=== PATIENT | female | born 1980 | race Caucasian/White ===

== ENCOUNTER 2019-06-17 14:20 | Emergency (ER) | payer OTHER, SELFPAY ==
[2019-06-17 14:24] VITALS: PULSE 113; RESP 16; O2SAT 99; BMI 34.5
[2019-06-17 15:03] VITALS: BP 128/83; PULSE 101; RESP 18; O2SAT 97
[2019-06-17 15:22] LABS: Add Manual Diff / Slide Review NO; Basophils Absolute Auto 100 /uL (0-100); Basophils Percent Auto 1.3 % (0-2); Eosinophils Absolute Auto 100 /uL (0-450); Eosinophils Percent Auto 1.2 % (2-4); Hematocrit 39.3 % (36-46); Hemoglobin 12.6 g/dL (12.0-16.0); Lymphocytes Absolute Auto 3400 /uL (1100-4500); Mean Corpuscular Hemoglobin 24.7 PG (26-34); Monocytes Absolute Auto 500 /uL (0-900); Monocytes Percent Auto 7.8 % (3-14); Neutrophils Absolute Auto 2900 /uL (1500-7000); Neutrophils Percent Auto 41.7 % (50-75); Platelet Count 274 X10^3/uL (150-400); Red Blood Cell Count 5.11 X10^6/uL (4.0-5.2); Red Cell Distribution Width 16.3 % (11.6-14.8)
[2019-06-17 15:39] LABS: Alanine Aminotransferase 15 IU/L (<35); Albumin 4.1 g/dL (3.5-5.0); Albumin Globulin Ratio 1.2 (1.0-2.8); Alkaline Phosphatase 58 U/L (38-126); Aspartate Aminotransferase 25 IU/L (14-36); BUN Creatinine Ratio 33.3 (6-22); Bilirubin Total 0.2 mg/dL (0.2-1.3); Blood Urea Nitrogen 21 mg/dL (7-17); Calcium 9.2 mg/dL (8.4-10.2); Carbon Dioxide 27 mmol/L (22-32); Chloride 105 mmol/L (98-107); Estimated Glomerular Filt Rate > 60.0 mL/min (>60); Globulin 3.5 g/dL (1.7-4.1); Glucose 91 mg/dL (70-100); HEMOLYSIS 16 (0-50); Potassium 4.3 mmol/L (3.4-5.1); Sodium 138 mmol/L (137-145); Total Protein 7.6 g/dL (6.3-8.2)
[2019-06-17] MEDS: ONDANSETRON 4 MG/2 ML INJ IV (15:46)
--- NOTE | 2019-06-17 15:47 | DI.US.S_ITS ---
PROCEDURE: US PELVIC COMPLETE INDICATIONS: HISTORY OF OVARIAN CYST,RUPTURE. EVAL FOR TORSION TECHNIQUE: Real-time scanning was performed of the pelvic organs, with image documentation. Additional endovaginal scanning was necessary due to incomplete visualization of the adnexal and endometrial structures by transabdominal scanning. COMPARISON: None. FINDINGS: Transabdominal scanning: Limited scanning through the kidneys shows no hydronephrosis. No pathologic free abdominal or pelvic fluid. Endovaginal scanning: Uterus: Uterus is normal in size at 3.8 x 5.5 x 6.6 cm. The endometrium measures 8.0 mm in combined thickness. Ovaries: The right ovary measures 3.7 x 4.0 x 5.0 cm and the left measures 2.8 x 1.5 x 3.0 cm. There is a rounded right ovarian cyst like structure containing low-level internal echoes measuring up to 2.6 x 3.5 x 3.3 cm. A limited duplex Doppler ultrasound shows no evidence of abnormal vascularity either within or along the periphery of this structure. IMPRESSION: The cystic structure at the right ovary measures up to 3.5 cm in maximal dimension, is rounded, and does not demonstrate abnormal internal or marginal vascularity. The low-level internal echoes indicate likelihood of either hemorrhagic right ovarian cyst or right paraovarian endometrioma. Followup in 6-8 weeks is recommended to assess for resolution. No suspicion for ovarian torsion is currently present. Dictated by: Chuck Luevano M.D. on 06/17/2019 at 17:02 Approved by: Chuck Luevano M.D. on 06/17/2019 at 17:06
[2019-06-17] MEDS: KETOROLAC 60 MG/2 ML VIAL 15 MG IV (15:54)
[2019-06-17 16:01] VITALS: BP 113/59; PULSE 69; RESP 18; O2SAT 98
--- NOTE | 2019-06-17 16:33 | ED_ITS ---
HPI - Female Genitourinary <IVAN Gutierres - Last Filed: 06/18/19 00:25> General Chief complaint: Urogenital-Female Stated complaint: Ovarian cyst rupture Time Seen by Provider: 06/17/19 15:06 Source: patient Mode of arrival: Ambulatory Limitations: no limitations History of Present Illness HPI Narrative: This is a 38 year female, nonsmoker, who presents to ED with severe right lower abdominal discomfort. Patient reports she has history of PCOS and takes metformin and which has been helping with her symptoms. She occasionally has ruptured ovarian cyst which causes severe pain. Patient denies vaginal bleeding at this time. Then, she also reports left low abdominal discomfort which started about 5 minutes ago. LMP was 10 days ago and not concerned for at this time. Patient reports she was dizzy earlier from the pain which resolved. Patient denies chest pain, breathing difficulty, lightheadedness at this time. Last ultrasound was done in November 2018. P atient denies urinary symptoms. Related Data Previous Rx's Medication Instructions Recorded amoxicillin-pot clavulanate 875 mg PO Q12H #14 tab 06/11/17 [Augmentin] ondansetron 4 mg PO BID-TID PRN #7 tab 06/17/19 tramadol 50 mg PO Q8H PRN #7 tab 06/17/19 Allergies Allergy/AdvReac Type Severity Reaction Status Date / Time iodine [IODINE] Allergy Unknown Verified 06/17/19 14:24 latex [LATEX] Allergy Unknown Verified 06/17/19 14:24 Review of Systems <IVAN Gutierres - Last Filed: 06/18/19 00:25> Review of Systems Narrative: General: Denies fever, chills, fatigue, malaise, sweats. HEENT: Denies sinus pain, ear pain, sore throat, difficulty swallowing, dizzin ess. Respiratory: Denies dyspnea, cough, wheezing, hemoptysis, sputum. Cardiovascular: Denies chest pain, palpitations, orthopnea, edema. Gastrointestinal: Denies nausea, vomiting, (+) right and left low abdominal pain, diarrhea, constipation, melena. : Denies dysuria, frequency, incontinence, hematuria, urinary retention. Musculoskeletal: Denies weakness, joint pain or bony pain. Skin: Denies rash, skin lesions, or other. Neurologic: Denies weakness, headache, numbness, change in speech, confusion, seizures, incoordination. Psychiatric: No concerning psychosocial issues. 12-point review of systems is negative except for those stated above. Patient History <IVAN Gutierres - Last Filed: 06/18/19 00:25> Medical History Appendicitis (Acute) Ovarian cyst (Acute) Smoking Status: Never smoker Substance Use Type: does not use Exam <IVAN Gutierres - Last Filed: 06/18/19 00:25> Narrative Exam Narrative: GEN: Alert, oriented x 3, well appearing and nourished, and in no acute distress. Head: Normal cephalic, atraumatic. No scalp or temporal tenderness, palpable mass or rash. EYES: Pupils are equal, round, and reactive to light and accommodation. Extraocular muscles are intact bilaterally. There is no subconjunctival hemorrhage, exudate and sclera non-icteric. ENT: Hearing grossly intact. Nose without bleeding, purulent discharge or de viation. Mucous membrane moist, no mucosal lesion. Throat without erythema, tonsillar hypertrophy or exudate. Uvula in midline, airway patent. Neck: Trachea in midline. No JVD, non-tender without lymphadenopathy. No masses or thyroid megaly. Supple, non-tender and no meningeal signs. CARDIAC: Normal regular rate and rhythm without murmurs, gallops, or rubs. No chest wall tenderness. No peripheral edema, cyanosis or pallor. Capillary refill is less than 2 seconds. RESPIRATORY: Lungs are clear to auscultate bilaterally. No cough, wheezes, rales, or rhonchi. No stridor, respiratory distress, increase work of breathing, or accessary muscle used. ABD: Abdomen soft and non-distended. Tender to palpate in bilateral low abdomen. No guarding or rebound tenderness to palpate. Bowel sounds are normal in all 4 quadrants. There is no palpable masses or organomegaly. EXT: Full painless ROM of all extremities with no loss of sensation, strength, effusion or edema. SKIN: Warm, dry, normal color for patient. No erythema, lesions or rash over visible areas. BACK: Nontender without deformity or crepitance. No flank tenderness. NEUROLOGICAL: Alert and oriented to place, time and person. Sensation and motor function intact bilaterally. No facial droops, dysphasia. PSYCHIATRIC: Good judgement and reason, without hallucinations, abnormal affect or abnormal behaviors during the examination. Initial Vital Signs Initial Vital Signs: Vital Signs Pulse Rate 113 H 06/17/19 14:24 Respiratory Rate 16 06/17/19 14:24 Pulse Oximetry 99 06/17/19 14:24 <Georgette Gibbs MD - Last Filed: 06/18/19 07:31> Initial Vital Signs Initial Vital Signs: Vital Signs Pulse Rate 113 H 06/17/19 14:24 Respiratory Rate 16 06/17/19 14:24 Pulse Oximetry 99 06/17/19 14:24 Scores <IVAN Gutierres - Last Filed: 06/18/19 00:25> GCS Juan coma scale eye opening: Spontaneous Ujan coma scale verbal response: Orientated Juan coma scale motor response: Obey commands Darragh coma scale total score: 15 Course <IVAN Gutierres - Last Filed: 06/18/19 00:25> Orders Ordered: Discontinued Medications Acetaminophen (Tylenol) 650 mg PO NOW ONE Stop: 06/17/19 17:24 Last Admin: 06/17/19 17:30 Dose: 650 mg Documented by: ROBBIN Ketorolac Tromethamine (Toradol) 15 mg IV NOW ONE Stop: 06/17/19 15:43 Last Admin: 06/17/19 15:54 Dose: 15 mg Documented by: ROBERTO Morphine Sulfate (Morphine) 2 mg IV NOW ONE Stop: 06/17/19 17:24 Last Admin: 06/17/19 17:30 Dose: 2 mg Documented by: ROBBIN Ondansetron HCl (Zofran) 4 mg IV NOW ONE Stop: 06/17/19 15:35 Last Admin: 06/17/19 15:46 Dose: 4 mg Documented by: ROBERTO Tramadol HCl (Ultram) 50 mg PO NOW ONE Stop: 06/17/19 17:24 Last Admin: 06/17/19 17:30 Dose: 50 mg Documented by: ROBBIN Vital Signs Vital signs: Vital Signs - 8 hr 06/17/19 17:55 06/17/19 18:31 Pulse Rate 81 68 Respiratory Rate 16 14 Blood Pressure 118/76 Blood Pressure [Right Arm] 122/87 Pulse Oximetry 97 100 <Georgette Gibbs MD - Last Filed: 06/18/19 07:31> Orders Ordered: Discontinued Medications Acetaminophen (Tylenol) 650 mg PO NOW ONE Stop: 06/17/19 17:24 Last Admin: 06/17/19 17:30 Dose: 650 mg Documented by: ROBBIN Ketorolac Tromethamine (Toradol) 15 mg IV NOW ONE Stop: 06/17/19 15:43 Last Admin: 06/17/19 15:54 Dose: 15 mg Documented by: ROBERTO Morphine Sulfate (Morphine) 2 mg IV NOW ONE Stop: 06/17/19 17:24 Last Admin: 06/17/19 17:30 Dose: 2 mg Documented by: ROBBIN Ondansetron HCl (Zofran) 4 mg IV NOW ONE Stop: 06/17/19 15:35 Last Admin: 06/17/19 15:46 Dose: 4 mg Documented by: ROBERTO Tramadol HCl (Ultram) 50 mg PO NOW ONE Stop: 06/17/19 17:24 Last Admin: 06/17/19 17:30 Dose: 50 mg Documented by: ROBBIN Vital Signs Vital signs: Vital Signs - 8 hr 06/17/19 17:55 06/17/19 18:31 Pulse Rate 81 68 Respiratory Rate 16 14 Blood Pressure 118/76 Blood Pressure [Right Arm] 122/87 Pulse Oximetry 97 100 [facility] - Female Genitourinary <IVAN Gutierres - Last Filed: 06/18/19 00:25> Differential Diagnosis Differential diagnosis: Likely urinary tract infection, ovarian cyst and ruptured ovarian cyst Medical Records Attestation: I reviewed the patient's medical records. Lab Data Attestation: I reviewed the patient's lab results. Result diagrams: 06/17/19 15:11 06/17/19 15:11 Labs: Lab Results 06/17/19 06/17/19 Range/Units 15:11 15:11 WBC 7.0 (4.5-11.0) X10^3/uL RBC 5.11 (4.0-5.2) X10^6/uL Hgb 12.6 (12.0-16.0) g/dL Hct 39.3 (36-46) % MCV 77.0 L (80-100) fL MCH 24.7 L (26-34) PG MCHC 32.0 (30-36) % RDW 16.3 H (11.6-14.8) % Plt Count 274 (150-400) X10^3/uL Neut % (Auto) 41.7 L (50-75) % Lymph % (Auto) 48.0 H (25-40) % [place] % (Auto) 7.8 (3-14) % Eos % (Auto) 1.2 L (2-4) % Baso % (Auto) 1.3 (0-2) % Neut # (Auto) 2900 (7605-6173) /uL Lymph # (Auto) 3400 (4127-1581) /uL [place] # (Auto) 500 (0-900) /uL Eos # (Auto) 100 (0-450) /uL Baso # (Auto) 100 (0-100) /uL Sodium 138 (137-145) mmol/L Potassium 4.3 (3.4-5.1) mmol/L Chloride 105 (98-107) mmol/L Carbon Dioxide 27 (22-32) mmol/L BUN 21 H (7-17) mg/dL Creatinine 0.63 (0.52-1.04) mg/dL Estimated GFR > 60.0 (>60) mL/min BUN/Creatinine Ratio 33.3 H (6-22) Glucose 91 (70-100) mg/dL Calcium 9.2 (8.4-10.2) mg/dL Total Bilirubin 0.2 (0.2-1.3) mg/dL AST 25 (14-36) IU/L ALT 15 (<35) IU/L Alkaline Phosphatase 58 (38-126) U/L Total Protein 7.6 (6.3-8.2) g/dL Albumin 4.1 (3.5-5.0) g/dL Globulin 3.5 (1.7-4.1) g/dL Albumin/Globulin Ratio 1.2 (1.0-2.8) Point of Care Testing Test Results Negative Urine Dip Bedside Urine Glucose Negative Bedside Urine Bilirubin - Negative Bedside Urine Ketone +/- 5 Urine Specific [place] 1.030 Bedside Urine Occult Blood - Negative Bedside Urine pH 6.0 Bedside Urine Protein +/- 15 Bedside Urine Nitrite - Negative Bedside Urine Leukocytes - Negative Esterase Imaging Data US - [employer] TECHNICIAN: Radiologist's Impression: [address] [address] Ultrasound Report Signed Patient: Vijaya Soliman [facility]#: [id number] : 1980Acct:[id number] Age/Sex: 38 / FDate of Service: 06/17/19 Loc: ED Accession Number: [id number] Procedure: US pelvic complete Ordering Provider: Hamlet Siddiqi PROCEDURE: US PELVIC COMPLETE INDICATIONS: HISTORY OF OVARIAN CYST,RUPTURE. EVAL FOR TORSION TECHNIQUE: Real-time scanning was performed of the pelvic organs, with image documentation. Additional endovaginal scanning was necessary due to incomplete visualization of the adnexal and endometrial structures by transabdominal scanning. COMPARISON: None. FINDINGS: Transabdominal scanning: Limited scanning through the kidneys shows no hydronephrosis. No pathologic free abdominal or pelvic fluid. Endovaginal scanning: Uterus: Uterus is normal in size at 3.8 x 5.5 x 6.6 cm. The endometrium measures 8.0 mm in combined thickness. Ovaries: The right ovary measures 3.7 x 4.0 x 5.0 cm and the left measures 2.8 x 1.5 x 3.0 cm. There is a rounded right ovarian cyst like structure containing low- level internal echoes measuring up to 2.6 x 3.5 x 3.3 cm. A limited duplex Doppler ultrasound shows no evidence of abnormal vascularity either within or along the periphery of this structure. IMPRESSION: The cystic structure at the right ovary measures up to 3.5 cm in maximal dimension, is rounded, and does not demonstrate abnormal internal or marginal vascularity. The low-level internal echoes indicate likelihood of either hemorrhagic right ovarian cyst or right paraovarian endometrioma. Followup in 6-8 weeks is recommended to assess for resolution. No suspicion for ovarian torsion is currently present. Dictated by: Chuck Luevano M.D. on 06/17/2019 at 17:02 Approved by: Chuck Luevano M.D. on 06/17/2019 at 17:06 [facility] Narrative Medical decision making narrative: This is a 38-year-old female who has history of ruptured ovarian cyst presents to ED with initially right lower quadrant pain which progressed to left-sided low quadrant pain without vaginal bleeding. Patient had lightheadedness from severe pain which resolved when she arrived to ED. heart rate was 113 with within normal blood pressure. The patient was medicated with IV Toradol and Zofran for nausea and abdominal discomfort. Patient has is stable H&H of 12.6 and 39.3 without leukocytosis. Chemistry test was unremarkable except mildly elevated BUN of 21 and BUN creatinine ratio of 33.3. And it indicates bilateral ovarian cyst measuring 3.7 x 4.0 x 5.0 in right ovary with left measuring 2.8 x 1.5 x 3.0. There was low level internal echoes indicating either hemorrhagic right ovarian cyst or right paraovarian endometrioma and he was suggested to repeat ultrasound test in 6-8 weeks to follow-up. There is no indication for ovarian torsion. Patient reports pain mildly improved after the medications. Patient was medicated with Tylenol, Tramdol and 2 mg of IV morphine which much improved patient's symptoms. Patient advised to take [id number] Tylenol and or Motrin as needed for pain as 1st line treatment and discharged to home with small dose of tramadol as needed use. Narcotic medication precautions were discussed with patient. Return precautions were discussed with the patient and patient verbalized understanding and in agreement with treatment plan. Patient's heart rate had improved to 60's and normotensive before discharged to home. <Georgette Gibbs MD - Last Filed: 06/18/19 07:31> Lab Data Labs: Lab Results 06/17/19 06/17/19 Range/Units 15:11 15:11 WBC 7.0 (4.5-11.0) X10^3/uL RBC 5.11 (4.0-5.2) X10^6/uL Hgb 12.6 (12.0-16.0) g/dL Hct 39.3 (36-46) % MCV 77.0 L (80-100) fL MCH 24.7 L (26-34) PG MCHC 32.0 (30-36) % RDW 16.3 H (11.6-14.8) % Plt Count 274 (150-400) X10^3/uL Neut % (Auto) 41.7 L (50-75) % Lymph % (Auto) 48.0 H (25-40) % [place] % (Auto) 7.8 (3-14) % Eos % (Auto) 1.2 L (2-4) % Baso % (Auto) 1.3 (0-2) % Neut # (Auto) 2900 (4965-1321) /uL Lymph # (Auto) 3400 (7262-3608) /uL [place] # (Auto) 500 (0-900) /uL Eos # (Auto) 100 (0-450) /uL Baso # (Auto) 100 (0-100) /uL Sodium 138 (137-145) mmol/L Potassium 4.3 (3.4-5.1) mmol/L Chloride 105 (98-107) mmol/L Carbon Dioxide 27 (22-32) mmol/L BUN 21 H (7-17) mg/dL Creatinine 0.63 (0.52-1.04) mg/dL Estimated GFR > 60.0 (>60) mL/min BUN/Creatinine Ratio 33.3 H (6-22) Glucose 91 (70-100) mg/dL Calcium 9.2 (8.4-10.2) mg/dL Total Bilirubin 0.2 (0.2-1.3) mg/dL AST 25 (14-36) IU/L ALT 15 (<35) IU/L Alkaline Phosphatase 58 (38-126) U/L Total Protein 7.6 (6.3-8.2) g/dL Albumin 4.1 (3.5-5.0) g/dL Globulin 3.5 (1.7-4.1) g/dL Albumin/Globulin Ratio 1.2 (1.0-2.8) Point of Care Testing Test Results Negative Urine Dip Bedside Urine Glucose Negative Bedside Urine Bilirubin - Negative Bedside Urine Ketone +/- 5 Urine Specific [place] 1.030 Bedside Urine Occult Blood - Negative Bedside Urine pH 6.0 Bedside Urine Protein +/- 15 Bedside Urine Nitrite - Negative Bedside Urine Leukocytes - Negative Esterase Discharge Plan Departure Patient Disposition: Home Clinical Impression: Ovarian cyst Qualifiers: Laterality: bilateral Qualified Code(s): N83.201 - Unspecified ovarian cyst, right side Discharge Date/Time: 06/17/19 18:37 Instructions: DI for Ovarian Cyst Activity Restrictions/Additional Instructions: You have been diagnosed with [bilateral ovarian cysts. Right cyst measuring 3.7 x 4.0 x 5.0 and left measuring 2.8x 1.5 x 3.0 cm. No indication of ovarian torsion appreciated. Ultrasound test shows either these are hemorrhage right ovarian cyst or right paraovarian endometrioma secondary to low level internal echoes. Blood tests were unremarkable including CBC and chemistry. Urine test does not indicate infection and urine test was negative. He was indicated to follow up in 6-8 weeks for another ultrasound test]. What to do: *Take your medications as directed. Please take [id number] Tylenol 650- 1000 mg up to 3 to 4 times day as needed. Ibuprofen 400 mg up to 3 times a day with food as needed. If you continue to have severe pain and add tramadol. Tramadol is narcotic medication so please take precautions such as not drinking alcohol, driving, operating heavy equipments. Also he can cause constipation so please increase fluid intake and high-fiber diets. Zofran as needed for nausea. This medication have been transmitted to [facility]. *Follow up with your primary care provider in 2-3 days, call for an appointment. Let them know you were seen in the ED and that we asked you to be seen in follow up. *Return to ED if you have any new, worsening, or concerning symptoms, such as [chest pain, breathing difficulty, unable to tolerate fluids, feeling like fainting, fever or any acute concerns]. Prescriptions: New tramadol 50 mg tablet 50 mg PO Q8H PRN (Reason: pain) Qty: 7 RF: 0 ondansetron 4 mg tablet,disintegrating 4 mg PO BID-TID PRN (Reason: nausea and vomiting) Qty: 7 RF: 0 No Action amoxicillin-pot clavulanate [Augmentin] 875 MG/125 MG tablet 875 mg PO Q12H Qty: 14 RF: 0 Referrals: [facility] [Outside] <Georgette Gibbs MD - Last Filed: 06/18/19 07:31> Cosign ED Attending Cosignature Attestation: I was immediately available in the department for consultation throughout this patient's visit. I agree with documentation as above. Georgette Gibbs MD
[2019-06-17] MEDS: MORPHINE 2 MG/ML INJ IV (17:30)
[2019-06-17] MEDS: TRAMADOL 50 MG TABLET PO (17:30)
[2019-06-17] MEDS: ACETAMINOPHEN 325 MG TABLET 650 MG PO (17:30)
[2019-06-17 17:55] VITALS: BP 122/87; PULSE 81; RESP 16; O2SAT 97
[2019-06-17 18:31] VITALS: BP 118/76; PULSE 68; RESP 14; O2SAT 100
== END 2019-06-17 18:37 | disposition home or self-care (01) ==
PROVIDERS: Emergency Medicine; Emergency Provider Nurse Practitioner Family
DX: N83.201 Unspecified ovarian cyst, right side (principal); R79.89 Other specified abnormal findings of blood chemistry
CPT/HCPCS: 36415; 76830; 76856; 80053; 81003; 81025; 85025; 96374; 96375; 99284; J1885; J2270; J2405

== ENCOUNTER 2019-09-16 11:40 | Emergency (ER) | payer OTHER, SELFPAY ==
[2019-09-16] VITALS (8 sets, daily range): BP systolic 109–142; BP diastolic 63–88; PULSE 59–90; RESP 16; TEMP 36.6; O2SAT 96–99; BMI 33.6
--- NOTE | 2019-09-16 11:57 | DI.US.S_ITS ---
PROCEDURE: US PELVIC COMPLETE INDICATIONS: RT LOWER PELVIC PAIN HISTORY OF CYSTS TECHNIQUE: Real-time scanning was performed of the pelvic organs, with image documentation. Additional endovaginal scanning was necessary due to incomplete visualization of the adnexal and endometrial structures by transabdominal scanning. COMPARISON: [facility], US, US PELVIC COMPLETE, 06/17/2019, 16:24. FINDINGS: Transabdominal scanning: Limited scanning through the kidneys shows no hydronephrosis. No pathologic free abdominal or pelvic fluid. Endovaginal scanning: Uterus: Uterus is normal in size at 10.8 x 3.5 x 5.0 cm. The endometrium measures 7.6 mm in combined thickness. Nabothian cysts are noted. Ovaries: Right ovary is enlarged measuring 6.0 x 4.4 x 4.3 cm. There is a complex cystic mass in the right ovary measuring 4.9 x 2.6 x 4.1 cm. Left ovary is normal in size and echotexture measuring 2.9 x 2.2 x 2.1 cm. IMPRESSION: 1. A 4.9 x 2.6 x 4.1 cm complex cystic mass in the right ovary. Recommend a followup ultrasound in 6 weeks. 2. Normal uterus and left ovary. Dictated by: Gloria Morgan M.D. on 09/16/2019 at 13:26 Approved by: Gloria Morgan M.D. on 09/16/2019 at 13:39
--- NOTE | 2019-09-16 11:59 | ED.ABDPAIN ---
HPI - Abdominal Pain <IVAN Campos - Last Filed: 09/16/19 19:31> General Chief Complaint: Abdominal Pain Stated Complaint: ovarian cyst rupture Time Seen by Provider: 09/16/19 11:50 History of Present Illness HPI narrative: 38yo female with a history of PCOS, an appendectomy, and multiple ovarian cysts, presents to the emergency department for right pelvic pain that started last night. She states ?I felt the cyst pop and a got very lightheaded ?. Patient states the pain is now consistent and worse with pressure and movement, she describes her pain is a dull aching with occasional sharp stabbing episodes at 8/10 with associated nausea. Patient denies any dizziness or lightheaded at this time. She denies any fevers, chills, nausea, vomiting, diarrhea, chest pain, vaginal bleeding, or other concerns. Patient denies any concerns for . Patient also states that she had a referral to get an IUD placed but has not been able to receive this therapy due to restrictions with [facility]. Related Data Previous Rx's Medication Instructions Recorded amoxicillin-pot clavulanate 875 mg PO Q12H #14 tab 06/11/17 [Augmentin] ondansetron 4 mg PO BID-TID PRN #7 tab 06/17/19 tramadol 50 mg PO Q8H PRN #7 tab 06/17/19 hydrocodone-acetaminophen [[place]] 1 tab PO Q4-6H PRN #14 tab 09/16/19 meloxicam 7.5 mg PO DAILY #20 tab 09/16/19 ondansetron 4 mg PO Q6H PRN #20 tab 09/16/19 Allergies Allergy/AdvReac Type Severity Reaction Status Date / Time iodine [IODINE] Allergy Unknown Verified 06/17/19 14:24 latex [LATEX] Allergy Unknown Verified 06/17/19 14:24 Review of Systems <IVAN Campos - Last Filed: 09/16/19 19:31> Review of Systems Narrative: REVIEW OF SYSTEMS: GENERAL: Denies fever, chills, malaise, or wt. loss. HENT: No head trauma. EYES: No vision changes. CARDIOVASCULAR: No chest pain, palpitations, or orthopnea. RESPIRATORY: No shortness of breath or cough. GASTROINTESTINAL: Complains of abdominal pain, see HPI GENITOURINARY: No flank pain, urinary incontinence, hesitancy, frequency, or dysuria. No vaginal discharge or dyspareunia. Denies concerns for STIs MUSCULOSKELETAL: No pain, weakness, or trauma. INTEGUMENTARY: No rash, lesions, or pruritus. NEURO: No numbness, tingling, memory loss, confusion, or headaches. PSYCH: No behavior or mood changes. Patient History <IVAN Campos - Last Filed: 09/16/19 19:31> Medical History Appendicitis (Acute) Ovarian cyst (Acute) Social History Smoking Status: Never smoker Smoking Status: Never smoker Substance Use Type: does not use Exam <IVAN Campos - Last Filed: 09/16/19 19:31> Initial Vital Signs Initial Vital Signs: Vital Signs Pulse Rate 88 09/16/19 11:50 Blood Pressure 142/88 H 09/16/19 11:50 Pulse Oximetry 97 09/16/19 11:50 PHYSICAL EXAMINATION: GENERAL: Well groomed, alert, and cooperative. Answers questions promptly and appropriately. Vital signs noted. HENT: Normocephalic, atraumatic. Hearing intact. Oral mucosa is pink and moist. EYES: Conjunctiva pink, sclera white, no periorbital swelling. CARDIOVASCULAR: S1 and S2 sounds normal. Regular rate and rhythm, no murmurs, clicks, or bruits. No pedal edema. RESPIRATORY: Normal respiratory rate, trachea midline, airway patent. No stridor, nasal flaring or accessory muscle use. Lungs are clear in all anand without wheeze, rhonchi, or crackles. GASTROINTESTINAL: Bowel sounds normoactive. Abdomen is soft, right lower quadrant tenderness, tenderness and right lower quadrant with left lower quadrant palpation. No organomegaly, no palpable masses. GENITALURINARY: No flank tenderness. MUSCULOSKELETAL: Normal gait and coordination. Equal tone and mass bilaterally. EXTREMITIES: CMS intact, no pedal edema. SKIN: Warm, dry, soft, appropriate color for ethnicity. No lesions, rashes, or wounds to visualized areas. NEURO: Alert and Oriented X 3. Good coordination. No ataxia, or sensory deficits, or cognitive issues. PSYCH: Appropriate affect and mood. <Serg Key DO - Last Filed: 09/17/19 06:58> Initial Vital Signs Initial Vital Signs: Vital Signs Pulse Rate 88 09/16/19 11:50 Blood Pressure 142/88 H 09/16/19 11:50 Pulse Oximetry 97 09/16/19 11:50 Course <Diamante Santos [employer] - Last Filed: 09/16/19 19:31> Course Course Narrative: 1200: Patient was given normal saline, ondansetron, and Toradol for symptom relief. Patient reported increased pain and nausea, was given an additional dose of Zofran and morphine. Orders Ordered: Discontinued Medications Sodium Chloride (Normal Saline 0.9%) 1,000 mls @ 1,000 mls/hr IV BOLUS ONE Stop: 09/16/19 12:56 Last Infusion: 09/16/19 13:16 Dose: 0 mls/hr Documented by: Admin: 09/16/19 12:16 Dose: 1,000 mls/hr Documented by: GRIS Ketorolac Tromethamine (Toradol) 30 mg IV NOW ONE Stop: 09/16/19 11:58 Last Admin: 09/16/19 12:16 Dose: 30 mg Documented by: GRIS Morphine Sulfate (Morphine) 2 mg IV NOW ONE Stop: 09/16/19 13:16 Last Admin: 09/16/19 13:20 Dose: 2 mg Documented by: GRIS Ondansetron HCl (Zofran) 4 mg IV NOW ONE Stop: 09/16/19 11:58 Last Admin: 09/16/19 12:16 Dose: 4 mg Documented by: GRIS Ondansetron HCl (Zofran) 4 mg IV NOW ONE Stop: 09/16/19 13:16 Last Admin: 09/16/19 13:21 Dose: 4 mg Documented by: GRIS Vital Signs Vital signs: Vital Signs - 8 hr 09/16/19 11:50 09/16/19 12:00 09/16/19 12:07 Temperature 97.8 F Pulse Rate 88 83 90 Respiratory Rate 16 Blood Pressure 142/88 H 123/80 142/88 H Pulse Oximetry 97 97 97 09/16/19 12:37 09/16/19 12:38 09/16/19 12:39 Temperature Pulse Rate 59 L 81 78 Respiratory Rate Blood Pressure 123/70 117/63 Pulse Oximetry 96 97 97 09/16/19 13:00 09/16/19 13:30 Temperature Pulse Rate 75 68 Respiratory Rate Blood Pressure 109/67 114/74 Pulse Oximetry 99 98 <Serg Key DO - Last Filed: 09/17/19 06:58> Orders Ordered: Discontinued Medications Sodium Chloride (Normal Saline 0.9%) 1,000 mls @ 1,000 mls/hr IV BOLUS ONE Stop: 09/16/19 12:56 Last Infusion: 09/16/19 13:16 Dose: 0 mls/hr Documented by: Admin: 09/16/19 12:16 Dose: 1,000 mls/hr Documented by: GRIS Ketorolac Tromethamine (Toradol) 30 mg IV NOW ONE Stop: 09/16/19 11:58 Last Admin: 09/16/19 12:16 Dose: 30 mg Documented by: GRIS Morphine Sulfate (Morphine) 2 mg IV NOW ONE Stop: 09/16/19 13:16 Last Admin: 09/16/19 13:20 Dose: 2 mg Documented by: GRIS Ondansetron HCl (Zofran) 4 mg IV NOW ONE Stop: 09/16/19 11:58 Last Admin: 09/16/19 12:16 Dose: 4 mg Documented by: GRIS Ondansetron HCl (Zofran) 4 mg IV NOW ONE Stop: 09/16/19 13:16 Last Admin: 09/16/19 13:21 Dose: 4 mg Documented by: GRIS Vital Signs Vital signs: Vital Signs - 8 hr 09/16/19 11:50 09/16/19 12:00 09/16/19 12:07 Temperature 97.8 F Pulse Rate 88 83 90 Respiratory Rate 16 Blood Pressure 142/88 H 123/80 142/88 H Pulse Oximetry 97 97 97 09/16/19 12:37 09/16/19 12:38 09/16/19 12:39 Temperature Pulse Rate 59 L 81 78 Respiratory Rate Blood Pressure 123/70 117/63 Pulse Oximetry 96 97 97 09/16/19 13:00 09/16/19 13:30 Temperature Pulse Rate 75 68 Respiratory Rate Blood Pressure 109/67 114/74 Pulse Oximetry 99 98 MDM - Abdominal Pain <IVAN Campos - Last Filed: 09/16/19 19:31> Medical Records Attestation: I reviewed the patient's medical records. Lab Data Attestation: I reviewed the patient's lab results. Result diagrams: 09/16/19 11:55 09/16/19 11:55 Labs: Lab Results 09/16/19 09/16/19 Range/Units 11:55 11:55 WBC 5.9 (4.5-11.0) X10^3/uL RBC 5.01 (4.0-5.2) X10^6/uL Hgb 12.1 (12.0-16.0) g/dL Hct 38.4 (36-46) % MCV 76.7 L (80-100) fL MCH 24.2 L (26-34) PG MCHC 31.5 (30-36) % RDW 16.4 H (11.6-14.8) % Plt Count 273 (150-400) X10^3/uL Neut % (Auto) 40.0 L (50-75) % Lymph % (Auto) 51.8 H (25-40) % [facility] % (Auto) 5.9 (3-14) % Eos % (Auto) 1.4 L (2-4) % Baso % (Auto) 0.9 (0-2) % Neut # (Auto) 2400 (1455-6223) /uL Lymph # (Auto) 3100 (1466-8942) /uL [facility] # (Auto) 300 (0-900) /uL Eos # (Auto) 100 (0-450) /uL Baso # (Auto) 100 (0-100) /uL Sodium 136 L (137-145) mmol/L Potassium 4.2 (3.4-5.1) mmol/L Chloride 103 (98-107) mmol/L Carbon Dioxide 29 (22-32) mmol/L BUN 16 (7-17) mg/dL Creatinine 0.66 (0.52-1.04) mg/dL Estimated GFR > 60.0 (>60) mL/min BUN/Creatinine Ratio 24.2 H (6-22) Glucose 101 H (70-100) mg/dL Calcium 9.8 (8.4-10.2) mg/dL Total Bilirubin 0.5 (0.2-1.3) mg/dL AST 31 (14-36) IU/L ALT 24 (<35) IU/L Alkaline Phosphatase 61 (38-126) U/L Total Protein 7.2 (6.3-8.2) g/dL Albumin 4.2 (3.5-5.0) g/dL Globulin 3.0 (1.7-4.1) g/dL Albumin/Globulin Ratio 1.4 (1.0-2.8) Point of care testing: Point of Care Testing Test Results Negative Urine Dip Bedside Urine Glucose Negative Bedside Urine Bilirubin - Negative Bedside Urine Ketone - Negative Urine Specific [place] 1.005 Bedside Urine Occult Blood - Negative Bedside Urine pH 6.5 Bedside Urine Protein - Negative Bedside Urine Urobilinogen - Negative Bedside Urine Nitrite - Negative Bedside Urine Leukocytes - Negative Esterase Imaging Data Extremity x-ray #1: Radiologist's Impression: [address] [id number] Ultrasound Report Signed Patient: Vijaya Soliman [facility]#: [id number] : 1980Acct:[id number] Age/Sex: 38 / FDate of Service: 09/16/19 Loc: ED Accession Number: [id number] Procedure: US pelvic complete Ordering Provider: Diamante Santos PROCEDURE: US PELVIC COMPLETE INDICATIONS: RT LOWER PELVIC PAIN HISTORY OF CYSTS TECHNIQUE: Real-time scanning was performed of the pelvic organs, with image documentation. Additional endovaginal scanning was necessary due to incomplete visualization of the adnexal and endometrial structures by transabdominal scanning. COMPARISON: [facility], US PELVIC COMPLETE, 06/17/2019, 16:24. FINDINGS: Transabdominal scanning: Limited scanning through the kidneys shows no hydronephrosis. No pathologic free abdominal or pelvic fluid. Endovaginal scanning: Uterus: Uterus is normal in size at 10.8 x 3.5 x 5.0 cm. The endometrium measures 7.6 mm in combined thickness. Nabothian cysts are noted. Ovaries: Right ovary is enlarged measuring 6.0 x 4.4 x 4.3 cm. There is a complex cystic mass in the right ovary measuring 4.9 x 2.6 x 4.1 cm. Left ovary is normal in size and echotexture measuring 2.9 x 2.2 x 2.1 cm. IMPRESSION: 1. A 4.9 x 2.6 x 4.1 cm complex cystic mass in the right ovary. Recommend a followup ultrasound in 6 weeks. 2. Normal uterus and left ovary. Dictated by: Gloria Morgan M.D. on 09/16/2019 at 13:26 Approved by: Gloria Morgan M.D. on 09/16/2019 at 13:39 MDM Narrative Medical decision making narrative: 38yo female history of PCOS, presents emergency department for right sided pelvic pain. I suspect patient's pain is most likely caused by her ovarian cyst noted on ultrasound, no signs of torsion or infection. Less concern for pelvic infection due to lack of tachycardia, afebrile, unilateral pain, and denies discharge. Less concern for bleeding has cyst is intact without rupture, H&H is stable. Patient was given pain medications, nausea medications, and we discussed follow-up. Patient states she has a referral placed currently for OBGYN, she was encouraged to call as soon as possible schedule an appointment. Strict return precautions given. Patient plan of care verbalized understanding. <Serg Key, DO - Last Filed: 09/17/19 06:58> Lab Data Labs: Lab Results 09/16/19 09/16/19 Range/Units 11:55 11:55 WBC 5.9 (4.5-11.0) X10^3/uL RBC 5.01 (4.0-5.2) X10^6/uL Hgb 12.1 (12.0-16.0) g/dL Hct 38.4 (36-46) % MCV 76.7 L (80-100) fL MCH 24.2 L (26-34) PG MCHC 31.5 (30-36) % RDW 16.4 H (11.6-14.8) % Plt Count 273 (150-400) X10^3/uL Neut % (Auto) 40.0 L (50-75) % Lymph % (Auto) 51.8 H (25-40) % [facility] % (Auto) 5.9 (3-14) % Eos % (Auto) 1.4 L (2-4) % Baso % (Auto) 0.9 (0-2) % Neut # (Auto) 2400 (0978-9382) /uL Lymph # (Auto) 3100 (4657-6435) /uL [facility] # (Auto) 300 (0-900) /uL Eos # (Auto) 100 (0-450) /uL Baso # (Auto) 100 (0-100) /uL Sodium 136 L (137-145) mmol/L Potassium 4.2 (3.4-5.1) mmol/L Chloride 103 (98-107) mmol/L Carbon Dioxide 29 (22-32) mmol/L BUN 16 (7-17) mg/dL Creatinine 0.66 (0.52-1.04) mg/dL Estimated GFR > 60.0 (>60) mL/min BUN/Creatinine Ratio 24.2 H (6-22) Glucose 101 H (70-100) mg/dL Calcium 9.8 (8.4-10.2) mg/dL Total Bilirubin 0.5 (0.2-1.3) mg/dL AST 31 (14-36) IU/L ALT 24 (<35) IU/L Alkaline Phosphatase 61 (38-126) U/L Total Protein 7.2 (6.3-8.2) g/dL Albumin 4.2 (3.5-5.0) g/dL Globulin 3.0 (1.7-4.1) g/dL Albumin/Globulin Ratio 1.4 (1.0-2.8) Point of care testing: Point of Care Testing Test Results Negative Urine Dip Bedside Urine Glucose Negative Bedside Urine Bilirubin - Negative Bedside Urine Ketone - Negative Urine Specific [place] 1.005 Bedside Urine Occult Blood - Negative Bedside Urine pH 6.5 Bedside Urine Protein - Negative Bedside Urine Urobilinogen - Negative Bedside Urine Nitrite - Negative Bedside Urine Leukocytes - Negative Esterase Discharge Plan Departure Patient Disposition: Home Clinical Impression: Ovarian cyst Qualifiers: Laterality: right Qualified Code(s): N83.201 - Unspecified ovarian cyst, right side Discharge Date/Time: 09/16/19 14:01 Instructions: DI for Ovarian Cyst Activity Restrictions/Additional Instructions: Thank you for entrusting me with your care today. As discussed, your ultrasound shows a 4.9 x 2.6 x 4.1cm in the right ovary. I suspect this is causing your pain. I recommend following up with and [facility] in the next few weeks as you may need a repeat ultrasound in 6 weeks. You have been prescribed nausea and pain medication. You have been prescribed a narcotic medication, this medication can make you drowsy. Do not drive while using this medication or perform activities that require mental alertness. These medications can also make you constipated, please use [id number] docusate sodium as needed for constipation. I also recommend taking ibuprofen with this as well to decrease inflammation. Your prescriptions were sent to [facility] in [place]. Return to the emergency department for any new or worsening symptoms such as severe pain, uncontrollable vomiting, high fevers, suspicious vaginal discharge, or any other concerns. Prescriptions: New ondansetron 4 mg tablet,disintegrating 4 mg PO Q6H PRN (Reason: nausea and vomiting) Qty: 20 RF: 0 hydrocodone-acetaminophen [[place]] 5-325 mg tablet 1 tab PO Q4-6H PRN (Reason: pain) Qty: 14 RF: 0 meloxicam 7.5 mg tablet 7.5 mg PO DAILY Qty: 20 RF: 0 No Action amoxicillin-pot clavulanate [Augmentin] 875 MG/125 MG tablet 875 mg PO Q12H Qty: 14 RF: 0 tramadol 50 mg tablet 50 mg PO Q8H PRN (Reason: pain) Qty: 7 RF: 0 ondansetron 4 mg tablet,disintegrating 4 mg PO BID-TID PRN (Reason: nausea and vomiting) Qty: 7 RF: 0 <Serg Key DO - Last Filed: 09/17/19 06:58> [facility] I was immediately available in the department for consultation. This documentation has been reviewed and I agree with assessment and plan. Supervised by Serg Key DO
[2019-09-16 12:14] LABS: Alanine Aminotransferase 24 IU/L (<35); Albumin 4.2 g/dL (3.5-5.0); Albumin Globulin Ratio 1.4 (1.0-2.8); Alkaline Phosphatase 61 U/L (38-126); Aspartate Aminotransferase 31 IU/L (14-36); BUN Creatinine Ratio 24.2 (6-22); Bilirubin Total 0.5 mg/dL (0.2-1.3); Blood Urea Nitrogen 16 mg/dL (7-17); Calcium 9.8 mg/dL (8.4-10.2); Carbon Dioxide 29 mmol/L (22-32); Chloride 103 mmol/L (98-107); Estimated Glomerular Filt Rate > 60.0 mL/min (>60); Glucose 101 mg/dL (70-100); HEMOLYSIS < 15 (0-50); Potassium 4.2 mmol/L (3.4-5.1); Sodium 136 mmol/L (137-145); Total Protein 7.2 g/dL (6.3-8.2)
[2019-09-16] MEDS: ONDANSETRON 4 MG/2 ML INJ IV ×2 (12:16→13:21)
[2019-09-16] MEDS: KETOROLAC 60 MG/2 ML VIAL 30 MG IV (12:16)
[2019-09-16] MEDS: SODIUM CHLORIDE 0.9% 1,000 ML 1000 ML IV (12:16)
[2019-09-16 12:18] LABS: Add Manual Diff / Slide Review NO; Basophils Absolute Auto 100 /uL (0-100); Basophils Percent Auto 0.9 % (0-2); Eosinophils Absolute Auto 100 /uL (0-450); Eosinophils Percent Auto 1.4 % (2-4); Hematocrit 38.4 % (36-46); Hemoglobin 12.1 g/dL (12.0-16.0); Lymphocytes Absolute Auto 3100 /uL (1100-4500); Lymphocytes Percent Auto 51.8 % (25-40); Mean Corpuscular HGB Conc 31.5 % (30-36); Mean Corpuscular Hemoglobin 24.2 PG (26-34); Mean Corpuscular Volume 76.7 fL (80-100); Monocytes Absolute Auto 300 /uL (0-900); Monocytes Percent Auto 5.9 % (3-14); Neutrophils Absolute Auto 2400 /uL (1500-7000); Platelet Count 273 X10^3/uL (150-400); Red Blood Cell Count 5.01 X10^6/uL (4.0-5.2); Red Cell Distribution Width 16.4 % (11.6-14.8); White Blood Cell Count 5.9 X10^3/uL (4.5-11.0)
[2019-09-16] MEDS: MORPHINE 2 MG/ML INJ IV (13:20)
== END 2019-09-16 14:01 | disposition home or self-care (01) ==
PROVIDERS: Emergency Provider Nurse Practitioner
DX: N83.201 Unspecified ovarian cyst, right side (principal)
CPT/HCPCS: 36415; 76830; 76856; 80053; 81003; 81025; 85025; 96361; 96374; 96375; 96376; 99284; J1885; J2270; J2405

== ENCOUNTER 2019-10-29 06:16 | Emergency (ER) | payer OTHER, SELFPAY ==
[2019-10-29] VITALS (7 sets, daily range): BP systolic 122–139; BP diastolic 68–95; PULSE 71–91; RESP 18; TEMP 36.7; O2SAT 96–100
--- NOTE | 2019-10-29 06:27 | ED.ABDPAIN ---
HPI - Abdominal Pain <Serg Key DO - Last Filed: 10/30/19 07:13> General Chief Complaint: Abdominal Pain Stated Complaint: states ovarian cyst rupture Time Seen by Provider: 10/29/19 06:18 Source: patient and family Mode of arrival: Ambulatory Limitations: no limitations History of Present Illness HPI narrative: 38-year-old female nonsmoker with history PCOS presents with her and the chief complaint of severe 8/10 lower abdominal pain consistent with prior episodes of ovarian cyst rupture. She denies vomiting but has been nauseated. She is dizzy and lightheaded. She denies vaginal bleeding, but does have pain with urination which is typical for her during similar episodes. She has been referred to [facility] and has an appointment with them in 11 days. MD complaint: abdominal pain Onset (ago): hour(s) Pain Consistency: constant Location: LLQ, RLQ and suprapubic Severity: severe Severity scale (1-10): 8 Quality: cramping and aching Radiation: none Relieving factors: rest Exacerbating factors: movement Context: history of similar episodes Associated symptoms: nausea Related Data Patient : No Previous Rx's Medication Instructions Recorded amoxicillin-pot clavulanate 875 mg PO Q12H #14 tab 06/11/17 [Augmentin] ondansetron 4 mg PO BID-TID PRN #7 tab 06/17/19 tramadol 50 mg PO Q8H PRN #7 tab 06/17/19 hydrocodone-acetaminophen [Erie] 1 tab PO Q4-6H PRN #14 tab 09/16/19 meloxicam 7.5 mg PO DAILY #20 tab 09/16/19 ondansetron 4 mg PO Q6H PRN #20 tab 09/16/19 hydrocodone-acetaminophen [Erie] 1 tab PO Q6H PRN #10 tab 10/29/19 meloxicam 7.5 mg PO DAILY PRN #30 tab 10/29/19 Allergies Allergy/AdvReac Type Severity Reaction Status Date / Time iodine [IODINE] Allergy Unknown Verified 06/17/19 14:24 latex [LATEX] Allergy Unknown Verified 06/17/19 14:24 Review of Systems <DO Sudhir Lujan Last Filed: 10/30/19 07:13> Constitutional Constitutional: Denies chills, Denies fatigue, Denies fever(s), Denies frequent falls, Denies lethargy and Denies weakness Eyes Eyes: Denies change in vision, Denies eye discharge, Denies irritation and Denies loss of vision ENT Ears, Nose, Mouth, and Throat: Denies change in voice, Denies dizziness, Denies neck pain, Denies sore throat and Denies throat swelling Cardiovascular Cardiovascular: Denies chest pain, Denies irregular heart rhythm, Denies lightheadedness, Denies palpitations, Denies dyspnea, Denies dyspnea on exertion and Denies orthopnea Respiratory Respiratory: Denies cough, Denies dyspnea, Denies dyspnea on exertion and Denies wheezing Gastrointestinal Gastrointestinal: Denies abdominal pain, Denies change in bowel habits, Denies diarrhea, Denies nausea and Denies vomiting Genitourinary Genitourinary: Reports pelvic pain Musculoskeletal Musculoskeletal: Denies neck pain and Denies numbness Integumentary/Breasts Skin/Breast: Denies pruritus, Denies erythema, Denies rash and Denies wounds Neurologic Neurologic: Denies behavioral changes, Denies confusion, Denies dizziness, Denies frequent falls, Denies loss of vision, Denies numbness and Denies weakness Psychiatric Psychiatric: Denies anxiety, Denies behavioral changes, Denies confusion, Denies depression, Denies homicidal ideation and Denies suicidal ideation Endocrine Endocrine: Denies fatigue, Denies flushing and Denies palpitations Hematologic/Lymphatic Hematologic/Lymphatic: Denies easy bruising Allergic/Immunologic Allergic/Immunologic: Denies urticaria, Denies throat swelling and Denies wheezing Patient History <Serg Key DO - Last Filed: 10/30/19 07:13> Medical History Appendicitis (Acute) Ovarian cyst (Acute) Social History Smoking Status: Never smoker Smoking Status: Never smoker Substance Use Type: does not use Exam <Serg Key DO - Last Filed: 10/30/19 07:13> Narrative Exam Narrative: GENERAL: [30] year old patient appears stated age. Well-nourished, well-developed patient, in moderate distress, tearful, anxious HEAD: Atraumatic. Normocephalic. EYES: Pupils equal round and reactive. Extraocular motions intact. No scleral icterus. No injection or drainage. ENT: Nose without bleeding, purulent drainage. Throat without erythema, tonsillar hypertrophy or exudate. Airway patent. NECK: Trachea midline. Non tender CARDIOVASCULAR: Regular rate and rhythm without murmurs, gallops, or rubs. RESPIRATORY: Clear to auscultation. Breath sounds equal bilaterally. No wheezes, rales, or rhonchi. GASTROINTESTINAL: Abdomen soft, severe tenderness in the lower portions of her abdomen, nondistended. EXTREMITIES: No edema or joint tenderness. BACK: Nontender without deformity or crepitance. No flank tenderness. NEURO: AOx3. SKIN: No rash or erythema of visible areas Initial Vital Signs Initial Vital Signs: Vital Signs Temperature 98.1 F 10/29/19 06:26 Pulse Rate 87 10/29/19 06:26 Respiratory Rate 18 10/29/19 06:26 Blood Pressure 133/95 H 10/29/19 06:26 Pulse Oximetry 98 10/29/19 06:26 <Martha Fuller DO - Last Filed: 10/29/19 14:10> Initial Vital Signs Initial Vital Signs: Vital Signs Temperature 98.1 F 10/29/19 06:26 Pulse Rate 87 10/29/19 06:26 Respiratory Rate 18 10/29/19 06:26 Blood Pressure 133/95 H 10/29/19 06:26 Pulse Oximetry 98 10/29/19 06:26 Course <Serg Key DO - Last Filed: 10/30/19 07:13> Orders Ordered: Discontinued Medications Diphenhydramine HCl (Benadryl) 25 mg IV NOW ONE Stop: 10/29/19 06:29 Last Admin: 10/29/19 06:44 Dose: 25 mg Documented by: JO Lactated Ringer's (Lactated Ringers) 1,000 mls @ 1,000 mls/hr IV BOLUS ONE Stop: 10/29/19 07:27 Last Infusion: 10/29/19 08:25 Dose: 0 mls/hr Documented by: Admin: 10/29/19 06:49 Dose: 1,000 mls/hr Documented by: JO Ketorolac Tromethamine (Toradol) 15 mg IV NOW ONE Stop: 10/29/19 06:29 Last Admin: 10/29/19 06:45 Dose: 15 mg Documented by: JO Methylprednisolone (Solu-Medrol 125 Mg Vial) 125 mg IV NOW ONE Stop: 10/29/19 06:29 Last Admin: 10/29/19 06:47 Dose: 125 mg Documented by: JO Ondansetron HCl (Zofran) 4 mg IV Q4HR PRN PRN Reason: Nausea And Vomiting Last Admin: 10/29/19 06:46 Dose: 4 mg Documented by: JO Vital Signs Vital signs: Vital Signs - 8 hr 10/29/19 06:26 10/29/19 06:30 10/29/19 07:00 Temperature 98.1 F Pulse Rate 87 89 86 Respiratory Rate 18 Blood Pressure 133/95 H Pulse Oximetry 98 97 96 10/29/19 07:30 10/29/19 07:57 10/29/19 08:00 Temperature Pulse Rate 91 H 83 71 Respiratory Rate Blood Pressure 139/68 Pulse Oximetry 100 98 97 10/29/19 08:01 Temperature Pulse Rate 74 Respiratory Rate Blood Pressure 122/77 Pulse Oximetry 100 <Martha Fuller, - Last Filed: 10/29/19 14:10> Orders Ordered: Discontinued Medications Diphenhydramine HCl (Benadryl) 25 mg IV NOW ONE Stop: 10/29/19 06:29 Last Admin: 10/29/19 06:44 Dose: 25 mg Documented by: JO Lactated Ringer's (Lactated Ringers) 1,000 mls @ 1,000 mls/hr IV BOLUS ONE Stop: 10/29/19 07:27 Last Infusion: 10/29/19 08:25 Dose: 0 mls/hr Documented by: Admin: 10/29/19 06:49 Dose: 1,000 mls/hr Documented by: JO Ketorolac Tromethamine (Toradol) 15 mg IV NOW ONE Stop: 10/29/19 06:29 Last Admin: 10/29/19 06:45 Dose: 15 mg Documented by: JO Methylprednisolone (Solu-Medrol 125 Mg Vial) 125 mg IV NOW ONE Stop: 10/29/19 06:29 Last Admin: 10/29/19 06:47 Dose: 125 mg Documented by: JO Ondansetron HCl (Zofran) 4 mg IV Q4HR PRN PRN Reason: Nausea And Vomiting Last Admin: 10/29/19 06:46 Dose: 4 mg Documented by: JO Vital Signs Vital signs: Vital Signs - 8 hr 10/29/19 06:26 10/29/19 06:30 10/29/19 07:00 Temperature 98.1 F Pulse Rate 87 89 86 Respiratory Rate 18 Blood Pressure 133/95 H Pulse Oximetry 98 97 96 10/29/19 07:30 10/29/19 07:57 10/29/19 08:00 Temperature Pulse Rate 91 H 83 71 Respiratory Rate Blood Pressure 139/68 Pulse Oximetry 100 98 97 10/29/19 08:01 Temperature Pulse Rate 74 Respiratory Rate Blood Pressure 122/77 Pulse Oximetry 100 MDM - Abdominal Pain <Serg Key DO - Last Filed: 10/30/19 07:13> Lab Data Result diagrams: 10/29/19 06:37 10/29/19 06:37 Labs: Lab Results 10/29/19 10/29/19 Range/Units 06:37 06:37 WBC 6.9 (4.5-11.0) X10^3/uL RBC 5.21 H (4.0-5.2) X10^6/uL Hgb 12.4 (12.0-16.0) g/dL Hct 39.1 (36-46) % MCV 75.1 L (80-100) fL MCH 23.8 L (26-34) PG MCHC 31.7 (30-36) % RDW 16.3 H (11.6-14.8) % Plt Count 271 (150-400) X10^3/uL Neut % (Auto) 40.0 L (50-75) % Lymph % (Auto) 51.1 H (25-40) % [place] % (Auto) 6.0 (3-14) % Eos % (Auto) 1.8 L (2-4) % Baso % (Auto) 1.1 (0-2) % Neut # (Auto) 2700 (6821-8055) /uL Lymph # (Auto) 3500 (8312-7355) /uL [place] # (Auto) 400 (0-900) /uL Eos # (Auto) 100 (0-450) /uL Baso # (Auto) 100 (0-100) /uL Sodium 136 L (137-145) mmol/L Potassium 3.9 (3.4-5.1) mmol/L Chloride 103 (98-107) mmol/L Carbon Dioxide 28 (22-32) mmol/L BUN 18 H (7-17) mg/dL Creatinine 0.70 (0.52-1.04) mg/dL Estimated GFR > 60.0 (>60) mL/min BUN/Creatinine Ratio 25.7 H (6-22) Glucose 97 (70-100) mg/dL Calcium 9.1 (8.4-10.2) mg/dL Total Bilirubin 0.5 (0.2-1.3) mg/dL AST 23 (14-36) IU/L ALT 16 (<35) IU/L Alkaline Phosphatase 60 (38-126) U/L Total Protein 7.2 (6.3-8.2) g/dL Albumin 4.0 (3.5-5.0) g/dL Globulin 3.2 (1.7-4.1) g/dL Albumin/Globulin Ratio 1.3 (1.0-2.8) Point of care testing: Point of Care Testing Test Results Negative Urine Dip Bedside Urine Glucose Negative Bedside Urine Bilirubin - Negative Bedside Urine Ketone - Negative Urine Specific [place] 1.015 Bedside Urine Occult Blood - Negative Bedside Urine pH 6.0 Bedside Urine Protein - Negative Bedside Urine Urobilinogen - Negative Bedside Urine Nitrite - Negative Bedside Urine Leukocytes - Negative Esterase <Martha Fuller, DO - Last Filed: 10/29/19 14:10> Lab Data Attestation: I reviewed the patient's lab results. Labs: Lab Results 10/29/19 10/29/19 Range/Units 06:37 06:37 WBC 6.9 (4.5-11.0) X10^3/uL RBC 5.21 H (4.0-5.2) X10^6/uL Hgb 12.4 (12.0-16.0) g/dL Hct 39.1 (36-46) % MCV 75.1 L (80-100) fL MCH 23.8 L (26-34) PG MCHC 31.7 (30-36) % RDW 16.3 H (11.6-14.8) % Plt Count 271 (150-400) X10^3/uL Neut % (Auto) 40.0 L (50-75) % Lymph % (Auto) 51.1 H (25-40) % [place] % (Auto) 6.0 (3-14) % Eos % (Auto) 1.8 L (2-4) % Baso % (Auto) 1.1 (0-2) % Neut # (Auto) 2700 (8316-7554) /uL Lymph # (Auto) 3500 (6268-2373) /uL [place] # (Auto) 400 (0-900) /uL Eos # (Auto) 100 (0-450) /uL Baso # (Auto) 100 (0-100) /uL Sodium 136 L (137-145) mmol/L Potassium 3.9 (3.4-5.1) mmol/L Chloride 103 (98-107) mmol/L Carbon Dioxide 28 (22-32) mmol/L BUN 18 H (7-17) mg/dL Creatinine 0.70 (0.52-1.04) mg/dL Estimated GFR > 60.0 (>60) mL/min BUN/Creatinine Ratio 25.7 H (6-22) Glucose 97 (70-100) mg/dL Calcium 9.1 (8.4-10.2) mg/dL Total Bilirubin 0.5 (0.2-1.3) mg/dL AST 23 (14-36) IU/L ALT 16 (<35) IU/L Alkaline Phosphatase 60 (38-126) U/L Total Protein 7.2 (6.3-8.2) g/dL Albumin 4.0 (3.5-5.0) g/dL Globulin 3.2 (1.7-4.1) g/dL Albumin/Globulin Ratio 1.3 (1.0-2.8) Point of care testing: Point of Care Testing Test Results Negative Urine Dip Bedside Urine Glucose Negative Bedside Urine Bilirubin - Negative Bedside Urine Ketone - Negative Urine Specific [place] 1.015 Bedside Urine Occult Blood - Negative Bedside Urine pH 6.0 Bedside Urine Protein - Negative Bedside Urine Urobilinogen - Negative Bedside Urine Nitrite - Negative Bedside Urine Leukocytes - Negative Esterase Imaging Data US - DESKTOP MANAGER: Radiologist's Impression: PROCEDURE: US PELVIC LIMITED INDICATIONS: SEVERE PELVIC PAIN TECHNIQUE: Real-time transabdominal scanning was performed of the pelvic organs, with image documentation. COMPARISON: [facility], US, US PELVIC COMPLETE, 06/17/2019, 16:24. [facility], PELVIC COMPLETE, 09/16/2019, 12:13. FINDINGS: Uterus: Uterus is normal in size at 9 x 5.5 x 4.9 cm. Endometrium measures 11 mm in combined thickness. Ovaries: The right ovary measures 6 x 4.4 x 4 cm and demonstrates a complex cyst that measures 4.3 x 3.8 x 3.4 cm, which previously measured 4.9 x 3.6 x 4.1 cm. The left ovary measures 2.9 x 2.1 x 1.7 cm and demonstrates a dominant follicle that measures up to 1.4 cm. No adnexal masses are seen. Normal appearing arterial and venous flow is confirmed to each ovary. Other: No free pelvic fluid. Limited scanning through the kidneys shows no hydronephrosis. IMPRESSION: There is a stable complex cyst seen involving the right ovary. Negative for ovarian torsion. Note: Concordant preliminary findings given by the technician semiconductor development upon the completion of the examination to Dr. Fuller at 8:00 a.m. on October 29, 2019. Dictated by: Micha Lopez M.D. on 10/29/2019 at 7:20 Approved by: Micha Lopez M.D. on 10/29/2019 at 7:22 [facility] Narrative Medical decision making narrative: Received sign-out from shift production supervisor provider Dr. Key. I have seen evaluated patient myself. Pain is significantly improved after Toradol. She still has some tenderness on the left although she is pretty sure the cyst ruptured on the right. Requesting meloxicam and couple Erie to get through the next few days and she will follow up the [facility] Discharge Plan Departure Patient Disposition: Home Clinical Impression: Ovarian cyst Qualifiers: Laterality: bilateral Qualified Code(s): N83.201 - Unspecified ovarian cyst, right side Discharge Date/Time: 10/29/19 08:26 Instructions: DI for Ovarian Cyst Activity Restrictions/Additional Instructions: *You have been diagnosed with ovarian cyst *What to do: Recommend follow-up with [facility]OS Clinic at [facility] *Continue to take medications as directed--> SENT TO [facility] IN ACCORDANCE Meloxicam 7.5 mg once a day Erie 1 tab every 6 hours needed for severe pain *Follow up with your primary care provider in 2-3 days *Return to ER if you should have increasing pain heavy vaginal bleeding or any new, worsening or concerning symptoms CONTROLLED SUBSTANCE DISCHARGE (NARCOTOIC/BENZODIAZEPINE/FLEXERIL/PHENERGAN) 1. YOU HAVE BEEN PRESCRIBED NARCOTIC MEDICATIONS, IT DOES HAVE ACETAMINOPHEN/TYLENOL/PARACETAMOL IN IT SO DO NOT TAKE EXTRA TYLENOL OR TYLENOL CONTAINING PRODUCTS TRAMADOL DOES NOT CONTAIN TYLENOL 2. PLEASE UNDERSTAND THAT WE CANNOT PROVIDE FURTHER REFILLS OF NARCOTICS, BENZODIAZEPINES OR CONTROLLED SUBSTANCES THROUGH THE ED AND HER PAIN MANAGEMENT WILL NEED TO BE THROUGH YOUR PROVIDER. 3. WHILE ON THESE MEDICATIONS YOU CANNOT DRIVE OR OPERATE HEAVY MACHINERY. 4. YOU CANNOT SIGN LEGAL DOCUMENTS OR PERFORM ANY DUTIES SUCH THIS. 5. LONG YOU'RE TAKING OPIATE PAIN MEDICATIONS HE SHOULD ALSO BE TAKING A STOOL SOFTENER SUCH COLACE, DULCOLAX, MIRALAX OR PRUNE JUICE, TO HELP AVOID CONSTIPATION. Prescriptions: New meloxicam 7.5 mg tablet 7.5 mg PO DAILY PRN (Reason: pain) Qty: 30 RF: 0 hydrocodone-acetaminophen [Erie] 5-325 mg tablet 1 tab PO Q6H PRN (Reason: pain) Qty: 10 RF: 0 No Action amoxicillin-pot clavulanate [Augmentin] 875 MG/125 MG tablet 875 mg PO Q12H Qty: 14 RF: 0 tramadol 50 mg tablet 50 mg PO Q8H PRN (Reason: pain) Qty: 7 RF: 0 ondansetron 4 mg tablet,disintegrating 4 mg PO BID-TID PRN (Reason: nausea and vomiting) Qty: 7 RF: 0 ondansetron 4 mg tablet,disintegrating 4 mg PO Q6H PRN (Reason: nausea and vomiting) Qty: 20 RF: 0 hydrocodone-acetaminophen [Erie] 5-325 mg tablet 1 tab PO Q4-6H PRN (Reason: pain) Qty: 14 RF: 0 meloxicam 7.5 mg tablet 7.5 mg PO DAILY Qty: 20 RF: 0
[2019-10-29 06:44] LABS: Add Manual Diff / Slide Review NO; Basophils Absolute Auto 100 /uL (0-100); Basophils Percent Auto 1.1 % (0-2); Eosinophils Absolute Auto 100 /uL (0-450); Eosinophils Percent Auto 1.8 % (2-4); Hematocrit 39.1 % (36-46); Hemoglobin 12.4 g/dL (12.0-16.0); Lymphocytes Absolute Auto 3500 /uL (1100-4500); Lymphocytes Percent Auto 51.1 % (25-40); Mean Corpuscular HGB Conc 31.7 % (30-36); Mean Corpuscular Hemoglobin 23.8 PG (26-34); Mean Corpuscular Volume 75.1 fL (80-100); Monocytes Absolute Auto 400 /uL (0-900); Neutrophils Absolute Auto 2700 /uL (1500-7000); Platelet Count 271 X10^3/uL (150-400); Red Blood Cell Count 5.21 X10^6/uL (4.0-5.2); Red Cell Distribution Width 16.3 % (11.6-14.8); White Blood Cell Count 6.9 X10^3/uL (4.5-11.0)
[2019-10-29] MEDS: diphenhydrAMINE 50 MG/ML VIAL 25 MG IV (06:44)
[2019-10-29] MEDS: KETOROLAC 60 MG/2 ML VIAL 15 MG IV (06:45)
[2019-10-29] MEDS: ONDANSETRON 4 MG/2 ML INJ IV (06:46)
[2019-10-29] MEDS: methylPREDNISolone 125 MG/2 ML VIAL IV (06:47)
[2019-10-29] MEDS: LACTATED RINGERS 1,000 ML 1000 ML IV (06:49)
[2019-10-29 06:56] LABS: Alanine Aminotransferase 16 IU/L (<35); Albumin Globulin Ratio 1.3 (1.0-2.8); Alkaline Phosphatase 60 U/L (38-126); Aspartate Aminotransferase 23 IU/L (14-36); BUN Creatinine Ratio 25.7 (6-22); Bilirubin Total 0.5 mg/dL (0.2-1.3); Blood Urea Nitrogen 18 mg/dL (7-17); Calcium 9.1 mg/dL (8.4-10.2); Carbon Dioxide 28 mmol/L (22-32); Chloride 103 mmol/L (98-107); Estimated Glomerular Filt Rate > 60.0 mL/min (>60); Globulin 3.2 g/dL (1.7-4.1); Glucose 97 mg/dL (70-100); HEMOLYSIS < 15 (0-50); Potassium 3.9 mmol/L (3.4-5.1); Sodium 136 mmol/L (137-145); Total Protein 7.2 g/dL (6.3-8.2)
== END 2019-10-29 08:26 | disposition home or self-care (01) ==
PROVIDERS: Emergency Medicine; Emergency Provider Emergency Medicine
DX: N83.201 Unspecified ovarian cyst, right side (principal)
CPT/HCPCS: 36415; 76830; 76857; 80053; 81003; 81025; 85025; 96361; 96374; 96375; 99284; J1200; J1885; J2405; J2930

== ENCOUNTER → 2019-12-22 00:18 | Outpatient (CLI) | payer OTHER, SELFPAY | PROVIDERS: Referring Provider Internal Medicine; Visit Provider Internal Medicine | DX: Z23 Encounter for immunization (principal) | CPT/HCPCS: 90471; 90686 ==

== ENCOUNTER → 2020-03-23 10:28 | Outpatient (CLI) | payer OTHER, SELFPAY ==
[2020-03-23] MEDS: COVID-19 VACC(MODERNA-1)/PF 100 MCG/0.5 ML VIAL IM (10:34)
== END ==
PROVIDERS: Visit Provider Internal Medicine
DX: Z23 Encounter for immunization (principal)
CPT/HCPCS: 0011A; 91301

== ENCOUNTER → 2020-04-20 10:23 | Outpatient (CLI) | payer OTHER, SELFPAY ==
[2020-04-20] MEDS: COVID-19 VACC #2, MRNA(MOD) 100 MCG/0.5 ML VIAL IM (10:34)
== END ==
PROVIDERS: Visit Provider Internal Medicine
DX: Z23 Encounter for immunization (principal)
CPT/HCPCS: 0012A; 91301

== ENCOUNTER 2022-07-08 04:19 | Emergency (ER) | payer OTHER, SELFPAY ==
--- NOTE | 2022-07-08 04:25 | ED.GENADULT ---
HPI - General Adult General Chief complaint: Fever Stated complaint: fever 2x days Time Seen by Provider: 07/08/22 04:25 History of Present Illness HPI narrative: 41-year-old woman with history of ADHD post oophorectomy who presents with 48 hours of fever with increasing nasal congestion to the point that she is having difficulty sleeping tonight. She has a cough that is causing significant irritation to her upper airway and is concerned that she was wheezing when she awoke this evening. She has been using ibuprofen and Tylenol for the body aches but continues to complain of fevers up to 102 at home, dramatic fatigue, overall body aches and generally feeling miserable. She has no complaints of vomiting, nausea, abdominal pain, dysuria, flank pain. She does have a nonproductive cough and a moderate amount of clear nasal discharge. Related Data Previous Rx's Medication Instructions Recorded amoxicillin 875 mg-potassium 875 mg PO Q12H #14 tabs 06/11/17 clavulanate 125 mg tablet (Augmentin) ondansetron 4 mg disintegrating 4 mg PO BID-TID PRN nausea and 06/17/19 tablet vomiting #7 tabs tramadol 50 mg tablet 50 mg PO Q8H PRN pain #7 tabs 06/17/19 hydrocodone 5 mg-acetaminophen 325 1 tab PO Q4-6H PRN pain #14 tabs 09/15/20 mg tablet (Greenleaf) meloxicam 7.5 mg tablet 7.5 mg PO DAILY pain #20 tabs 09/16/19 ondansetron 4 mg disintegrating 4 mg PO Q6H PRN nausea and 09/16/19 tablet vomiting #20 tabs hydrocodone 5 mg-acetaminophen 325 1 tab PO Q6H PRN pain #10 tabs 20 mg tablet (Greenleaf) meloxicam 7.5 mg tablet 7.5 mg PO DAILY PRN pain #30 tabs 10/29/19 benzonatate 200 mg capsule 200 mg PO BID-TID PRN cough #14 07/08/22 caps Allergies Allergy/AdvReac Type Severity Reaction Status Date / Time iodine [IODINE] Allergy Unknown Verified 06/17/19 14:24 latex [LATEX] Allergy Unknown Verified 06/17/19 14:24 Review of Systems Review of Systems Narrative: Pertinent positive and negative findings as per HPI Patient History Medical History Appendicitis Ovarian cyst Social History Smoking Status: Never smoker Smoking Status: Never smoker Substance Use Type: does not use Exam Initial Vital Signs Initial Vital Signs: General: Healthy appearing, in mild distress. Able to give a complete and coherent history. Well-nourished well-developed HEENT: Moist mucous membranes, normal sclera with reactive pupils, nasal fullness without dramatic discharge. Oropharynx does not have significant erythema, no exudate. Neck: No cervical adenopathy, supple Respiratory: Lungs are clear to auscultation, no wheezing no rales no rhonchi. Full and symmetrical air movement Cardiac: Regular rate and rhythm no murmurs no bruits Skin: Warm and dry, no rashes Neurologic: Grossly neurologically intact with no obvious asymmetries or abnormalities Extremities: No trauma, well perfused Psych: Cooperative, appropriate insight and affect Medical Decision Making MDM Narrative Medical decision making narrative: CC: Cough and fever for 48 hours. This is an acute problem uncertain prognosis Complicating co-morbidities: History of ADHD. She notes that she is had 2 cases of COVID in the last 18 months and probably an episode of influenza. 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 No wheezing or respiratory distress. Lab Test are not indicated at this time. We did discuss possibility of doing a respiratory panel to identify which virus is tormenting her however she does recognize that it would not change treatment in any way to identify the virus. Discussion: 41-year-old woman with 2 days of upper respiratory symptoms with increasing nasal stuffiness and posterior pharynx pain secondary to cough. We talked about [id number] medications that can be helpful including Sudafed for the stuffiness, Afrin to help at night. She is given a prescription for Tessalon to help suppress the cough and I also recommended some oral cough suppressants. . We reviewed again the absence of any signs indicating bacterial infection and ineffectiveness of adding any antibiotics to her current symptoms. Questions are answered and she is safe for discharge home Discharge Plan Departure Patient Disposition: Home Clinical Impression: Upper respiratory infection, viral Instructions: DI for Viral Upper Respiratory Infection -- Adult Activity Restrictions/Additional Instructions: Thank you for coming in today I am sorry that you are suffering so much with this upper respiratory infection. Unfortunately, I suspect you have 2 more days of feeling horrible and then another 2 days of feeling just bad. Fortunately I am not seeing any signs of any bacterial superinfection such as ear infections, tonsillitis, peritonsillar abscess, pneumonia. Using 400 mg of ibuprofen (2 [id number] pills) and 1 Tylenol every 6 hours can be very helpful in controlling pain. I have given you a prescription for Tessalon to help suppress the cough. I would also recommend trying some Sudafed during the day to help with nasal congestion. Some Afrin nose spray at night so that you are able to get some sleep. Throat lozenges and cough suppressants can also be quite helpful just for topical relief. [facility] [place] If you find that you are getting worse or develop any new symptoms, please feel free to return to the emergency department for further evaluation. Prescriptions: New benzonatate 200 mg capsule 200 mg PO BID-TID PRN (Reason: cough) Qty: 14 0RF No Action amoxicillin-pot clavulanate [Augmentin] 875 MG/125 MG tablet 875 mg PO Q12H Qty: 14 0RF tramadol 50 mg tablet 50 mg PO Q8H PRN (Reason: pain) Qty: 7 0RF ondansetron 4 mg tablet,disintegrating 4 mg PO BID-TID PRN (Reason: nausea and vomiting) Qty: 7 0RF meloxicam 7.5 mg tablet 7.5 mg PO DAILY PRN (Reason: pain) Qty: 30 0RF hydrocodone-acetaminophen [Greenleaf] 5-325 mg tablet 1 tab PO Q6H PRN (Reason: pain) Qty: 10 0RF ondansetron 4 mg tablet,disintegrating 4 mg PO Q6H PRN (Reason: nausea and vomiting) Qty: 20 0RF hydrocodone-acetaminophen [Greenleaf] 5-325 mg tablet 1 tab PO Q4-6H PRN (Reason: pain) Qty: 14 0RF meloxicam 7.5 mg tablet 7.5 mg PO DAILY Qty: 20 0RF Referrals: ProviderTheresa [Primary Care Provider] - Stand Alone Forms: Patient Portal/API
[2022-07-08 04:28] VITALS: BP 143/101; PULSE 99; RESP 20; TEMP 37.2; O2SAT 99; BMI 36.3
[2022-07-08] MEDS: BENZONATATE 100 MG CAPSULE PO (04:50)
[2022-07-08] MEDS: IBUPROFEN 400 MG TABLET PO (04:50)
== END 2022-07-08 04:55 | disposition home or self-care (01) ==
PROVIDERS: Emergency Provider Emergency Medicine
DX: J06.9 Acute upper respiratory infection, unspecified (principal)
CPT/HCPCS: 99283

== ENCOUNTER → 2024-02-09 11:50 | Outpatient (CLI) | payer OTHER, SELFPAY ==
--- NOTE | 2024-02-09 11:52 | DI.US.S_ITS ---
PROCEDURE: US EXTREMITY NONVASC LOWER RT INDICATIONS: RIGHT STEIN MASS TECHNIQUE: Real-time scanning was performed of the right anterior calf, with image documentation. COMPARISON: None. 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 Dictated by: Freddie Ayala M.D. on 02/09/2024 at 14:20 Approved by: Freddie Ayala M.D. on 02/09/2024 at 14:22
== END ==
PROVIDERS: Referring Provider Nurse Practitioner Family; Visit Provider Nurse Practitioner Family
DX: R22.41 Localized swelling, mass and lump, right lower limb (principal)
CPT/HCPCS: 76882